=== PATIENT | female | born 1945 | race Caucasian/White ===

== ENCOUNTER → 2017-07-24 | Outpatient (CLI) | payer OTHER ==
[~2017-07-24] MED LIST: ATENOLOL 50MG T50 M1 PO; CALCIUM + VITA1 EAC1 PO; CVS OMEGA-3 KR1 EACH PO; FISH OIL 1,001000 M2 PO; LISINOPRIL20 MG PO; LOVASTAT40 PO; NORVASC 5 MG TAB5 MG PO; RECLAST 55 MG/1002 IV; SYNTHROID88 MCG PO; WOMEN'S BIOMUL1 EAC1 PO
== END ==
LOC: RAD 00:50
DX: Z12.31 Encounter for screening mammogram for malignant neoplasm of breast (principal)

== ENCOUNTER → 2017-07-30 | Outpatient (CLI) | payer OTHER | LOC: RAD 15:04 | DX: M25.561 Pain in right knee (principal); M25.552 Pain in left hip ==

== ENCOUNTER → 2021-03-24 | Outpatient (CLI) | payer OTHER | LOC: CAT 09:26 | PROVIDERS: ATTEND Nurse Practitioner | DX: Z13.6 Encounter for screening for cardiovascular disorders (principal) ==